=== PATIENT | female | born 1950 | race Caucasian/White ===

== ENCOUNTER 2021-01-04 10:38 | Emergency (ER) | payer OTHER, MEDICAID ==
[~2021-01-04] VITALS: Ht 152.4 cm; Wt 84.4 kg
[2021-01-04 10:39] VITALS: BP 157/65
--- NOTE | 2021-01-04 10:53 | NUR ---
70 yo f c/o cotton stuck on left ear since last night while cleaning her ears with qtip. denies pain, denies discharge. no redness noted. pmh: dm meds: metformin nka
--- NOTE | 2021-01-04 10:57 | NUR ---
DR [facility] AT BEDSIDE EXAMINING PT
[2021-01-04 11:07] VITALS: BP 157/65
--- NOTE | 2021-01-04 11:07 | NUR ---
Patient discharged with v/s stable. Written and verbal after care instructions given and explained. Patient alert, oriented and verbalized understanding of instructions. Ambulatory with steady gait. All questions addressed prior to discharge. ID band removed. Patient advised to follow up with PMD. Opportunity to ask questions provided and answered.
== END 2021-01-04 11:07 | disposition home or self-care (01) ==
LOC: MED 10:38
DX: T16.2XXA Foreign body in left ear, initial encounter (principal); E11.9 Type 2 diabetes mellitus without complications; X58.XXXA Exposure to other specified factors, initial encounter; Y93.89 Activity, other specified; Y92.89 Other specified places as the place of occurrence of the external cause; Y99.8 Other external cause status
CPT/HCPCS: 69200; 99284

== ENCOUNTER 2022-09-08 11:42 | Emergency (ER) | payer OTHER ==
[~2022-09-08] VITALS: Ht 152.4 cm; Wt 79.4 kg
[2022-09-08 12:05] VITALS: BP 203/113
--- NOTE | 2022-09-08 12:10 | NUR ---
PT AMBULATED TO BED 7
--- NOTE | 2022-09-08 12:10 | NUR ---
72YO FEMALE PT C/O FACIAL AND L SHOULDER PAIN XTODAY. PAIN AT MOST ON MOVEMENT .REPORTS MECH FALL AND FALLING ONTO L SIDE OF BODY +HEADINJURY -LOC-BLOODTHINNERS. PRESENTS WITH ABRASION AND MILD SWELLING ABOVE L EYE. SHOULDER W/O VISIBLE DEFORMITY OR INJURY. PT UNABLE TO LIFT TO SHOULDER D/T PAIN. DENIES NUMBING, LOSS OF SENSATION OR VISION CHANGES. PT AAOX4, HOB POSITONED PER COMFORT. HX: DIABETES NKA
--- NOTE | 2022-09-08 12:12 | NUR ---
MD [facility] AT BEDSIDE FOR EVALUATION
[2022-09-08] MEDS ORDERED: KETOROLAC 60 MG/2 ML VIAL IM ONE (12:15)
--- NOTE | 2022-09-08 12:24 | NUR ---
xray at bedside
[2022-09-08] MEDS ORDERED: ACET-8905 PO (15:20)
[2022-09-08] MEDS ORDERED: IBUP-2213 PO (15:20)
[2022-09-08 15:25] VITALS: BP 162/93
--- NOTE | 2022-09-08 15:25 | NUR ---
The patient's care was reviewed and supervised by [facility], RN.
== END 2022-09-08 15:25 | disposition home or self-care (01) ==
LOC: MED 11:42
DX: S42.352A Displaced comminuted fracture of shaft of humerus, left arm, initial encounter for closed fracture (principal); S42.292A Other displaced fracture of upper end of left humerus, initial encounter for closed fracture; E11.9 Type 2 diabetes mellitus without complications; W19.XXXA Unspecified fall, initial encounter; Y93.89 Activity, other specified; Y92.89 Other specified places as the place of occurrence of the external cause; Y99.8 Other external cause status
CPT/HCPCS: 29105; 73060; 73070; 96372; 99284; J1885; Q0092